=== PATIENT | male | born 2000 | race Caucasian/White ===

== ENCOUNTER 2023-07-17 13:34 | Emergency (ER) | payer MEDICAID, OTHER ==
[~2023-07-17] VITALS: Ht 170.2 cm; Wt 92.5 kg
[2023-07-17 13:58] VITALS: BP 124/76; PULSE 112; RESP 18; TEMP 98; O2SAT 99
[2023-07-17] MEDS ORDERED: TRIA0.029 TP (14:22)
[2023-07-17] MEDS ORDERED: CETI10SG1 PO (14:22)
[2023-07-17 14:33] VITALS: BP 129/68; PULSE 92; RESP 16; TEMP 98; O2SAT 99
== END 2023-07-17 14:34 | disposition home or self-care (01) ==
LOC: MED 13:34
DX: R21 Rash and other nonspecific skin eruption (principal); Z79.899 Other long term (current) drug therapy
CPT/HCPCS: 99283